=== PATIENT | male | born 1945 | race Caucasian/White ===

== ENCOUNTER 2017-04-16 10:08 | Outpatient (CLI) | payer MEDICARE ==
--- NOTE | 2017-04-16 15:50 | NM ---
WHOLE BODY BONE SCAN: 04/16/17 HISTORY: Malignant neoplasm or prostate with elevated PSA. COMPARISON: Prior exam dated 12/19/16. RADIOPHARMACEUTICAL: 32.7 millicuries of technetium 99m MDP IV. FINDINGS: There is a mild amount of radiotracer accumulation seen involving the right posterior 8th through 11t h ribs on the right which are stable consistent with healing rib fractures. Degenerative changes are again seen involving the shoulders, knees and feet. FINDINGS: 1. No scintigraphic evidence of metastatic disease. 2. Healing right sided posterior rib fracture. POS: [facility]
== END 2017-04-16 10:09 | disposition home or self-care (01) ==
LOC: NM 10:08
PROVIDERS: ATTEND Internal Medicine Hematology & Oncology
DX: C61 Malignant neoplasm of prostate (principal); S22.31XD Fracture of one rib, right side, subsequent encounter for fracture with routine healing
CPT/HCPCS: 78306; A9503

== ENCOUNTER 2017-08-08 08:02 | Outpatient (CLI) | payer MEDICARE ==
--- NOTE | 2017-08-08 12:33 | NM ---
TOTAL BODY BONE SCAN: HISTORY: A 71-year-old male with a history of prostate malignancy and a rising PSA. COMPARISON: 04/16/2017 FINDINGS: Again noted is some minimal increased activity in four posterior right ribs. In addition, There is a very tiny new punctate focus of increased activity in the midline, at the T10 level. I cannot absol utely exclude the possibility that this represents an early developing metastatic focus. If that is a clinical concern, I would suggest follow-up thoracic spine MRI with and without IV contrast for fur ther assessment. Bilateral renal and bladder activity. The remainder of the bony skeleton is unrema rkable. IMPRESSION: 1. New very tiny punctate focus of abnormal increased activity in the midline, at the T10 level, pos sibly a tiny metastatic focus. Consider follow-up thoracic spine MRI with and without intravenous co ntrast. 2. Stable right posterior rib fracture areas of minimal increased abnormal activity, unchanged from the prior study. POS: [facility]
== END 2017-08-08 08:03 | disposition home or self-care (01) ==
LOC: NM 08:02
PROVIDERS: ATTEND Internal Medicine Hematology & Oncology
DX: C61 Malignant neoplasm of prostate (principal); S22.31XA Fracture of one rib, right side, initial encounter for closed fracture
CPT/HCPCS: 78306; A9503

== ENCOUNTER 2018-07-24 10:21 | Outpatient (CLI) | payer MEDICARE ==
--- NOTE | 2018-07-24 15:59 | NM ---
WHOLE BODY BONE SCAN: HISTORY: Malignant neoplasm of prostate. COMPARISON: 08/08/2017 RADIOPHARMACEUTICAL: Technetium 99m MDP 32 millicuries injected intravenously. FINDINGS: Foci of intense uptake are seen in the right sacrum, the T10 and T6 vertebral bodies, the right 10th rib, the left 9th rib, and the right 5th rib, consistent with osseous metastatic disease. Mildly inc reased focal uptake in the right posterior 8th and 9th ribs is likely due to old injury. Tracer excr etion through the kidneys is within normal limits. IMPRESSION: Interval worsening of osseous metastatic disease since 08/08/2017. POS: [facility]
== END 2018-07-24 10:22 | disposition home or self-care (01) ==
LOC: NM 10:21
PROVIDERS: ATTEND Internal Medicine Hematology & Oncology
DX: C61 Malignant neoplasm of prostate (principal); C79.51 Secondary malignant neoplasm of bone
CPT/HCPCS: 78306; A9503

== ENCOUNTER 2018-11-24 13:16 | Outpatient (CLI) | payer MEDICARE ==
--- NOTE | 2018-11-24 13:55 | CT ---
CT BRAIN NONCONTRAST: DATE: 11/24/18 at 1:23 p.m. HISTORY: 73-year-old male with malignant neoplasm of prostate gland status post head trauma from multiple fall s. COMPARISON: 10/19/11. FINDINGS: No definite osteoblastic lesion of the calvarium identified. No acute calvarial fracture identified. Mild to moderate ventriculomegaly involving the lateral and third ventricles, mildly progressed since 10/18/11. This is probably due to diffuse brain parenchymal volume loss. There is a smaller possibil ity that this could represent a mild degree of normal pressure hydrocephalus. Clinical correlation is recommended (is there gait apraxia, urinary incontinence, and/or dementia?). Chronic ischemic white matter changes of a moderate degree are slightly worse than in 2012. No acute intra-axial or extra-ax ial hemorrhage. No mass effect, midline shift or extra-axial fluid collection. Tiny old lacunar infar ctions of the bilateral thalami and posterior aspects of bilateral external capsules. The old thalami c lacunar infarctions occurred sometime after the previous CT of 10/19/11. IMPRESSION: 1. No acute intracranial findings. 2. Involutional changes and moderate to severe chronic ischemic white matter changes. 3. Mild interval progression of ventriculomegaly. 4. 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 5. No acute intracranial hemorrhage. POS: [facility]
== END 2018-11-24 13:17 | disposition home or self-care (01) ==
LOC: CT 13:16
PROVIDERS: ATTEND Internal Medicine Hematology & Oncology
DX: R42 Dizziness and giddiness (principal); C61 Malignant neoplasm of prostate; G93.89 Other specified disorders of brain; Z86.73 Personal history of transient ischemic attack (TIA), and cerebral infarction without residual deficits
CPT/HCPCS: 70450; 80053; 82248; 83615; 84100; 84153; 84550